=== PATIENT | female | born 1980 | race Caucasian/White ===

== ENCOUNTER 2019-12-23 00:47 | Emergency (ER) | payer OTHER ==
[~2019-12-23] VITALS: Ht 160 cm; Wt 108.9 kg
[2019-12-23 00:51] VITALS: BP 144/91
[2019-12-23] MEDS ORDERED: PROAIR HFA8.5 GM INH (00:56)
== END 2019-12-23 01:50 | disposition left against medical advice (07) ==
LOC: ER 00:47
DX: M54.2 Cervicalgia (principal); M54.9 Dorsalgia, unspecified; J45.909 Unspecified asthma, uncomplicated; Z79.899 Other long term (current) drug therapy; V89.2XXA Person injured in unspecified motor-vehicle accident, traffic, initial encounter; Y93.89 Activity, other specified; Y92.89 Other specified places as the place of occurrence of the external cause; Y99.8 Other external cause status